=== PATIENT | male | born 1945 | race Caucasian/White ===

== ENCOUNTER → 2019-03-08 | Outpatient (CLI) | payer OTHER ==
--- NOTE | 2019-03-08 11:59 | 2DMMODE ---
[facility] [employer] [place] [address] 2 D/M-MODE ECHOCARDIOGRAM Name: VICK ROBIN Room #: REG [facility]#: [id number] Admission: 03/08/19 Attend Phys: Carter Benavides MD Discharge: Date of : 43 Date of Service: 03/08/19 1159 Report #: [id number] THIS REPORT FOR: //name// APPROVED REPORT Study performed: 03/08/2019 10:56:41 EXAM: Comprehensive 2D, Doppler, and color-flow Echocardiogram Patient Location: Out-Patient Room #: Echo lab 1 Status: routine BSA: 2.20 HR: 67 bpm BP: 126/76 mmHg Rhythm: NSR Other Information Study Quality: Good Indications CAD 2D Dimensions RVDd: 32.52 mm IVSd: 11.12 (7-11mm) LVOT Diam: 22.40 (18-24mm) LVDd: 54.73 mm PWd: 10.64 (7-11mm) Ascending Ao: 38.06 (22-36mm) LVDs: 37.18 (25-40mm) Aortic Root: 37.27 mm IVC: 14.00 mm Volumes Left Atrial Volume (Systole) Single Plane 4CH: 65.19 mL Single Plane 2CH: 57.47 mL LA ESV Index: 29.00 mL/m2 Aortic Valve AoV Peak Stephane.: 1.35 m/s AO Peak Gr.: 7.30 mmHg LVOT Max P.09 mmHg LVOT Max V: 1.23 m/s SIL Vmax: 3.60 cm2 Mitral Valve E/A Ratio: 0.8 MV Decel. Time: 345.31 ms MV E Max Stephane.: 0.57 m/s [facility] [place] [address] 2 D/M-MODE ECHOCARDIOGRAM Name: VICK ROBIN Room #: REG [facility]#: [id number] Admission: 03/08/19 Attend Phys: Carter Benavides MD Discharge: Date of : 43 Date of Service: 03/08/19 1159 Report #: [id number] MV A Stephane.: 0.72 m/s MV PHT: 100.14 ms IVRT: 115.34 ms Pulmonary Valve PV Peak Stephane.: 0.87 m/s PV Peak Gr.: 3.06 mmHg Pulmonary Vein P Vein S: 0.51 m/s P Vein A: 0.28 m/s P Vein D: 0.22 m/s P Vein A Dur.: 110.7 msec P Vein S/D Ratio: 2.32 Tricuspid Valve TR Peak Stephane.: 2.45 m/s TR Peak Gr.: 23.93 mmHg PA Pressure: 29.00 mmHg Left Ventricle The left ventricle is normal size. There is normal LV segmental wall motion. There is normal left ventricular wall thickness. Left ventricular systolic function is normal. The left ventricular ejection fraction is within the normal range. LVEF is 55-60%. Mild diastolic dysfunction is present (impaired relaxation pattern). Right Ventricle The right ventricle is normal size. The right ventricular systolic function is normal. Atria The left atrium size is normal. The right atrium size is normal. Aortic Valve The aortic valve is normal in structure. No aortic regurgitation is present. There is no aortic valvular stenosis. Mitral Valve The mitral valve is normal in structure. There is no mitral valve regurgitation noted. No evidence of mitral valve stenosis. Tricuspid Valve The tricuspid valve is normal in structure. There is trace tricuspid regurgitation. Estimated PAP 30 mmHg. There is no pulmonary hypertension. [address] [address] 2 D/M-MODE ECHOCARDIOGRAM Name: VICK ROBIN Room #: REG [facility]#: [id number] Admission: 03/08/19 Attend Phys: Carter Benavides MD Discharge: Date of : 43 Date of Service: 03/08/19 1159 Report #: [id number] Pulmonic Valve The pulmonary valve is normal in structure. There is no pulmonic valvular regurgitation. Great Vessels The aortic root is normal in size. IVC is normal in size and collapses >50% with inspiration. Pericardium There is no pericardial effusion. <Conclusion> Left ventricular systolic function is normal. There is normal LV segmental wall motion. LVEF is 55-60%. Mild diastolic dysfunction The aortic valve is normal in structure. No aortic regurgitation or stenosis The mitral valve is normal in structure. No mitral valve regurgitation. There is trace tricuspid regurgitation. Estimated pulmonary artey pressure of 30 mmHg. There is no pericardial effusion. <ELECTRONICALLY SIGNED> By: Dayday García MD, FACC 03/08/19 1159 1159 1159 Dayday García MD, FACC /INF
== END ==
LOC: CV 07:30
DX: I25.9 Chronic ischemic heart disease, unspecified (principal)

== ENCOUNTER → 2020-07-14 | Outpatient (CLI) | payer OTHER ==
[2020-07-14 10:08] LABS: URINE BILIRUBIN NEGATIVE (Negative); URINE BLOOD NEGATIVE (Negative); URINE CLARITY CLEAR; URINE COLOR YELLOW; URINE GLUCOSE-RANDOM* NEGATIVE (Negative); URINE KETONES NEGATIVE (Negative); URINE LEUKOCYTES NEGATIVE (Negative); URINE NITRITE NEGATIVE (Negative); URINE PROTEIN (DIPSTICK) NEGATIVE (Negative); URINE UROBILINOGEN 0.2 E.U./dl (0.2-1.0)
[2020-07-14 10:17] LABS: ALBUMIN 4.1 g/dL (3.4-5.0); CREATININE 1.2 mg/dL (0.7-1.3); POTASSIUM 4.3 mmol/L (3.5-5.1); TOTAL BILIRUBIN 0.7 mg/dL (0.2-1.0); TOTAL PROTEIN 7.9 g/dL (6.4-8.2)
--- NOTE | 2020-07-14 11:36 | 2DMMODE ---
[facility] [place] [address] 2 D/M-MODE ECHOCARDIOGRAM Name: VICK ROBIN Room #: REG [facility]#: [id number] Admission: 07/14/20 Attend Phys: Carter Benavides MD Discharge: Date of : 43 Report #: [id number] THIS REPORT FOR: cc: FAM - Family physician unknown FAM - Family physician unknown Kingsley Acuña MD ~ APPROVED REPORT Study performed: 07/14/2020 10:14:38 EXAM: Comprehensive 2D, Doppler, and color-flow Echocardiogram Patient Location: Echo lab Room #: 2 Status: routine BSA: 2.23 HR: 68 bpm BP: 122/78 mmHg Rhythm: NSR Other Information Study Quality: Good Indications Ischemic heart disease. 2D Dimensions IVSd: 9.64 (7-11mm) LVOT Diam: 22.72 (18-24mm) LVDd: 45.86 mm PWd: 9.53 (7-11mm) Ascending Ao: 33.98 (22-36mm) LVDs: 34.64 (25-40mm) Aortic Root: 37.68 mm IVC: 14.00 mm Volumes Left Atrial Volume (Systole) Single Plane 4CH: 38.41 mL Single Plane 2CH: 48.08 mL LA ESV Index: 21.40 mL/m2 Aortic Valve AoV Peak Stephane.: 1.39 m/s AO Peak Gr.: 7.69 mmHg LVOT Max P.08 mmHg LVOT Max V: 1.33 m/s SIL Vmax: 3.89 cm2 Mitral Valve [facility] [address] [address] 2 D/M-MODE ECHOCARDIOGRAM Name: VICK ROBIN Room #: REG [facility]#: [id number] Admission: 07/14/20 Attend Phys: Carter Benavides MD Discharge: Date of : 43 Report #: [id number] E/A Ratio: 0.8 MV Decel. Time: 309.98 ms MV E Max Stephane.: 0.52 m/s MV A Stephane.: 0.67 m/s MV PHT: 89.89 ms IVRT: 152.25 ms Pulmonary Valve PV Peak Stephane.: 0.94 m/s PV Peak Gr.: 3.53 mmHg Pulmonary Vein P Vein S: 0.51 m/s P Vein A: 0.29 m/s P Vein D: 0.25 m/s P Vein A Dur.: 124.6 msec P Vein S/D Ratio: 2.04 Tricuspid Valve TR Peak Stephane.: 2.14 m/s TR Peak Gr.: 18.32 mmHg PA Pressure: 23.32 mmHg Left Ventricle The left ventricle is normal size. There is normal left ventricular wall thickness. The left ventricular systolic function is normal. LVEF is 55-60%. Mild diastolic dysfunction is present (impaired relaxation pattern). Right Ventricle The right ventricle is normal size. The right ventricular systolic function is normal. Atria The left atrium size is normal. Right atrium is dilated. Aortic Valve The aortic valve is normal in structure. Trace aortic regurgitation. There is no aortic valvular stenosis. Mitral Valve The mitral valve is normal in structure. Trace to mild mitral regurgitation. No evidence of mitral valve stenosis. Tricuspid Valve The tricuspid valve is normal in structure. Trace to mild tricuspid regurgitation. Estimated PAP 20-25mmHg. Pulmonic Valve [facility] [address] [place] [address] 2 D/M-MODE ECHOCARDIOGRAM Name: VICK ROBIN Room #: REG [facility].#: [id number] Admission: 07/14/20 Attend Phys: Carter Benavides MD Discharge: Date of : 43 Report #: [id number] The pulmonary valve is normal in structure. There is no pulmonic valvular regurgitation. Great Vessels Aortic root is upper limits of normal in size. The ascending aorta is normal in size. IVC is normal in size and collapses >50% with inspiration. Pericardium Trace pericardial effusion. <Conclusion> The left ventricle is normal size. There is normal left ventricular wall thickness. The left ventricular systolic function is normal. Mild diastolic dysfunction is present (impaired relaxation pattern). The right ventricle is normal size. The left atrium size is normal. The aortic valve is normal in structure. Trace to mild mitral regurgitation. Trace to mild tricuspid regurgitation. Estimated PAP 20-25mmHg. <ELECTRONICALLY SIGNED> By: Kingsley Acuña MD 07/14/20 1136 1136 1136 Kingsley Acuña MD /INF
== END ==
LOC: CV 09:05 → LAB 09:05
PROVIDERS: ATTEND Orthopaedic Surgery
DX: I12.9 Hypertensive chronic kidney disease with stage 1 through stage 4 chronic kidney disease, or unspecified chronic kidney disease (principal); E11.22 Type 2 diabetes mellitus with diabetic chronic kidney disease; N18.9 Chronic kidney disease, unspecified